=== PATIENT | female | born 1950 | race Caucasian/White ===

== ENCOUNTER 2017-08-04 20:21 | Emergency (ER) | payer MEDICARE ==
[~2017-08-04] VITALS: Ht 165.1 cm; Wt 72.6 kg
[2017-08-04 20:28] VITALS: Ht 165.1 cm; Wt 72.6 kg
[2017-08-04 21:16] LABS: BASOPHIL % 0.4 % (0-2); PLATELET COUNT 380 x10^3mcL (130-400)
[2017-08-04 21:30] LABS: CALCIUM 9.3 mg/dL (8.5-10.1); POTASSIUM SERUM 4.2 mmol/L (3.5-5.1)
[2017-08-04 21:35] LABS: ALBUMIN 3.9 g/dL (3.4-5.0); BILIRUBIN TOTAL 0.94 mg/dL (0.20-1.00); TOTAL PROTEIN, SERUM 7.8 g/dL (6.4-8.2)
[2017-08-05 01:31] VITALS: BP 174/78
== END 2017-08-05 01:31 | disposition short-term general hospital (02) ==
LOC: ED 20:21
PROVIDERS: Specialist
DX: K56.699 Other intestinal obstruction unspecified as to partial versus complete obstruction (principal); I10 Essential (primary) hypertension; E11.9 Type 2 diabetes mellitus without complications
CPT/HCPCS: 83880; J0694; J1170; J2405; J7030; J7050; Q0092